=== PATIENT | male | born 1980 | race African-American/Black ===

== ENCOUNTER 2017-11-27 19:59 | Emergency (ER) | payer OTHER ==
[~2017-11-27] VITALS: Ht 170.2 cm; Wt 65.8 kg
[~2017-11-27 19:59] MED LIST: MOTION RELIEF25 MG PO; ZOFRAN ODT4 MG PO
[2017-11-27] MEDS ORDERED: CARAFATE 1 GM TA1 G1 PO (20:16)
[2017-11-27] MEDS ORDERED: ZOFRAN ODT4 MG PO (20:16)
[2017-11-27] MEDS ORDERED: PRILOSEC 20 MG20 MG PO (20:16)
[2017-11-27] MEDS ORDERED: BENTYL 20 MG TA20 M1 PO (20:17)
[2017-11-27] MEDS ORDERED: ZANTAC 150MG T150 MG PO (20:28)
[2017-11-27] MEDS ORDERED: NORVASC5 MG PO (20:28)
[2017-11-27 20:46] VITALS: BP 161/100
== END 2017-11-27 20:49 | disposition home or self-care (01) ==
LOC: M.ERS 19:59
DX: I10 Essential (primary) hypertension (principal); F10.10 Alcohol abuse, uncomplicated; R10.9 Unspecified abdominal pain; F17.210 Nicotine dependence, cigarettes, uncomplicated

== ENCOUNTER 2018-03-13 11:55 | Emergency (ER) | payer OTHER ==
[~2018-03-13] VITALS: Ht 170.2 cm; Wt 61.2 kg
[~2018-03-13 11:55] MED LIST changes: +BENTYL 20 MG TA20 M1 PO; +CARAFATE 1 GM TA1 G1 PO; +NORVASC5 MG PO; +PRILOSEC 20 MG20 MG PO; +ZANTAC 150MG T150 MG PO
[2018-03-13 12:56] LABS: ABSOLUTE BASOPHILS 0.1 thou/uL (0.0-0.2); ABSOLUTE MONOCYTES 0.5 thou/uL (0.0-1.2); BASOPHILS 0.8 %; EOSINOPHILS 0.1 %; HEMATOCRIT 45.1 % (42.0-52.0); HEMOGLOBIN 15.5 gm/dL (14.0-18.0); LYMPHOCYTES 10.9 %; MCH 32.5 pg (26.0-34.0); MCHC 34.4 g/dL (28.0-37.0); MCV 94.4 fL (80.0-100.0); MONOCYTES 4.8 %; MPV 7.1 fl. (7.2-11.1); NUCLEATED RBCS 0 /100WBC; PLATELET COUNT* 249 thou/uL (150-400); POLYS 83.4 %; RBC 4.78 mil/uL (4.50-6.00); RDW-CV 14.7 % (10.5-14.5); WBC 9.6 thou/uL (4.0-11.0)
[2018-03-13 12:59] LABS: URINE BILIRUBIN NEGATIVE (Negative); URINE BLOOD TRACE (Negative); URINE CLARITY CLEAR; URINE COLOR YELLOW; URINE GLUCOSE-RANDOM NEGATIVE (Negative); URINE KETONES 1+ (Negative); URINE LEUKOCYTES-REFLEX NEGATIVE (Negative); URINE NITRITE-REFLEX NEGATIVE (Negative); URINE PROTEIN 2+ (Negative); URINE SPECIFIC GRAVITY >= 1.030 (1.005-1.030)
[2018-03-13 13:05] LABS: CALCIUM 9.3 mg/dL (8.5-10.1); CREATININE 1.2 mg/dL (0.6-1.3); POTASSIUM 3.6 mmol/L (3.5-5.1)
[2018-03-13 13:10] LABS: ALBUMIN 4.9 g/dL (3.4-5.0); TOTAL BILIRUBIN 2.2 mg/dL (<0.1-1.0)
[2018-03-13 13:41] LABS: BACTERIA-REFLEX None Seen /HPF (None Seen); MUCUS None Seen strn/LPF (None Seen); SQUAMOUS 0-3 Few /LPF (0-3); URINE RBC 3-10 Few /HPF (0-2); URINE WBC-REFLEX None Seen /HPF (0-5)
[2018-03-13 13:42] LABS: CRYSTALS None Seen /LPF (None Seen); HYALINE CASTS 0-3 Few /LPF (None Seen)
[2018-03-13] MEDS ORDERED: ONDANSETRON HCL4 M2 PO (15:59)
[2018-03-13 16:10] VITALS: BP 135/87
== END 2018-03-13 16:11 | disposition home or self-care (01) ==
LOC: M.ERS 11:55
PROVIDERS: Nurse Practitioner Family
DX: A08.4 Viral intestinal infection, unspecified (principal); R74.8 Abnormal levels of other serum enzymes; K76.0 Fatty (change of) liver, not elsewhere classified; I10 Essential (primary) hypertension; F17.210 Nicotine dependence, cigarettes, uncomplicated; Z88.5 Allergy status to narcotic agent

== ENCOUNTER 2018-06-28 22:43 | Emergency (ER) | payer OTHER ==
[~2018-06-28] VITALS: Ht 170.2 cm; Wt 65.8 kg
[~2018-06-28 22:43] MED LIST changes: +ONDANSETRON HCL4 M2 PO
[2018-06-28 23:16] LABS: ABSOLUTE EOSINOPHILS 0.1 thou/uL (0.0-0.7); ABSOLUTE LYMPHOCYTES 3.3 thou/uL (0.8-5.3); ABSOLUTE MONOCYTES 0.5 thou/uL (0.0-1.2); ABSOLUTE NEUTROPHILS 3.5 thou/uL (1.6-8.1); BASOPHILS 0.6 %; EOSINOPHILS 1.7 %; HEMATOCRIT 48.6 % (42.0-52.0); HEMOGLOBIN 16.6 gm/dL (14.0-18.0); LYMPHOCYTES 43.8 %; MCH 32.3 pg (26.0-34.0); MCHC 34.1 g/dL (28.0-37.0); MCV 94.7 fL (80.0-100.0); MONOCYTES 6.2 %; MPV 7.6 fl. (7.2-11.1); NUCLEATED RBCS 0 /100WBC; PLATELET COUNT* 167 thou/uL (150-400); POLYS 47.7 %; RBC 5.13 mil/uL (4.50-6.00); RDW-CV 14.7 % (10.5-14.5); WBC 7.4 thou/uL (4.0-11.0)
[2018-06-28 23:25] LABS: CALCIUM 9.6 mg/dL (8.5-10.1); CREATININE 1.3 mg/dL (0.6-1.3)
[2018-06-28 23:28] LABS: APTT 28.5 Seconds (25.0-31.3)
[2018-06-28 23:29] LABS: POTASSIUM 2.8 mmol/L (3.5-5.1)
[2018-06-28 23:40] LABS: ALBUMIN 5.4 g/dL (3.4-5.0); TOTAL BILIRUBIN 2.3 mg/dL (<0.1-1.0); TOTAL PROTEIN 9.2 g/dL (6.4-8.2)
[2018-06-28] MEDS ORDERED: ZOFRAN ODT4 MG SUBLING (23:55)
[2018-06-28] MEDS ORDERED: POTASSIUM20 PO (23:55)
[2018-06-29 00:21] VITALS: BP 161/96
--- NOTE | 2018-06-30 14:56 | EKG ---
[place] [address] ELECTROCARDIOGRAM REPORT Name: SAEED KOLB Room: [facility]#: [id number] Admission: 06/28/18 Attend Phys: Discharge: 06/29/18 Date of : 82 Report #: [id number] THIS REPORT FOR: //name// [facility] ED Test Date: 2018-06-28 Test Time: 22:57:39 Pat Name: SAEED KOLB Department: Room: Gender: M [employer]roll Accounting Specialist: Zenaida CONNORS : 1980 Requested By: Alvino Chandra Order Number: [id number] MD: Bj Rico Measurements Intervals [place] Rate: 123 P: 80 RI: 138 QRS: 84 QRSD: 84 T: -58 QT: 323 QTc: 462 Interpretive Statements Sinus tachycardia Consider right atrial enlargement Probable LVH with secondary repol abnrm No previous ECG available for comparison Electronically Signed On 06-30-2018 14:55:48 CDT by Bj Rico [email or web address] <ELECTRONICALLY SIGNED> By: Bj Rico MD, [facility] 06/30/18 1455 [id number] 56 Bj Rico MD, FACC /EPI
== END 2018-06-29 00:22 | disposition home or self-care (01) ==
LOC: M.ERS 22:43
PROVIDERS: Family Medicine
DX: F10.129 Alcohol abuse with intoxication, unspecified (principal); E87.6 Hypokalemia; I10 Essential (primary) hypertension; F17.210 Nicotine dependence, cigarettes, uncomplicated; Z88.5 Allergy status to narcotic agent; R11.2 Nausea with vomiting, unspecified

== ENCOUNTER 2018-08-17 15:20 | Emergency (ER) | payer OTHER ==
[~2018-08-17] VITALS: Ht 170.2 cm; Wt 67.1 kg
[~2018-08-17 15:20] MED LIST changes: +POTASSIUM20 PO; +ZOFRAN ODT4 MG SUBLING
[2018-08-17 15:46] LABS: ABSOLUTE BASOPHILS 0.1 thou/uL (0.0-0.2); ABSOLUTE EOSINOPHILS 0.2 thou/uL (0.0-0.7); ABSOLUTE LYMPHOCYTES 2.1 thou/uL (0.8-5.3); ABSOLUTE MONOCYTES 0.4 thou/uL (0.0-1.2); ABSOLUTE NEUTROPHILS 3.4 thou/uL (1.6-8.1); EOSINOPHILS 3.9 %; HEMATOCRIT 40.9 % (42.0-52.0); MCH 32.2 pg (26.0-34.0); MCHC 34.3 g/dL (28.0-37.0); MCV 93.8 fL (80.0-100.0); MONOCYTES 6.7 %; MPV 7.2 fl. (7.2-11.1); NUCLEATED RBCS 0 /100WBC; PLATELET COUNT* 341 thou/uL (150-400); POLYS 54.4 %; RBC 4.36 mil/uL (4.50-6.00); RDW-CV 13.6 % (10.5-14.5); WBC 6.3 thou/uL (4.0-11.0)
[2018-08-17 15:54] LABS: CALCIUM 8.5 mg/dL (8.5-10.1); POTASSIUM 4.1 mmol/L (3.5-5.1)
[2018-08-17 15:55] LABS: INR 1.1; PROTIME 10.8 Seconds (9.20-11.50)
[2018-08-17 15:59] LABS: ALBUMIN 3.7 g/dL (3.4-5.0); TOTAL BILIRUBIN 0.5 mg/dL (<0.1-1.0); TOTAL PROTEIN 6.9 g/dL (6.4-8.2)
[2018-08-17 16:04] LABS: URINE BILIRUBIN NEGATIVE (Negative); URINE BLOOD NEGATIVE (Negative); URINE CLARITY CLEAR; URINE COLOR YELLOW; URINE GLUCOSE-RANDOM NEGATIVE (Negative); URINE KETONES NEGATIVE (Negative); URINE LEUKOCYTES-REFLEX NEGATIVE (Negative); URINE NITRITE-REFLEX NEGATIVE (Negative); URINE PROTEIN NEGATIVE (Negative); URINE SPECIFIC GRAVITY 1.015 (1.005-1.030); URINE UROBILINOGEN 0.2 E.U./dl (0.2-1.0)
[2018-08-17 16:12] LABS: AMP/METHAMP Negative (Negative); BARBITURATES Negative (Negative); BENZODIAZEPINES Negative (Negative); COCAINE Negative (Negative); METHADONE Negative (Negative); OPIATES Negative (Negative); PCP Negative (Negative); THC Negative (Negative)
[2018-08-17 16:56] VITALS: BP 136/88
== END 2018-08-17 16:56 | disposition home or self-care (01) ==
LOC: M.ERS 15:20
PROVIDERS: Emergency Medicine
DX: R31.9 Hematuria, unspecified (principal); I10 Essential (primary) hypertension; F17.210 Nicotine dependence, cigarettes, uncomplicated; Z88.5 Allergy status to narcotic agent; Z79.899 Other long term (current) drug therapy